=== PATIENT | female | born 1985 | race Two or more races ===

== ENCOUNTER 2022-10-09 18:15 | Inpatient (IN) | payer MEDICAID ==
[~2022-10-09] VITALS: Ht 160 cm; Wt 82.6 kg
[2022-10-09] MEDS ORDERED: SYN.1 PO (19:05)
[2022-10-09 20:39] LABS: BASOPHILS % (AUTO) 0.6 % (0.0-2.0); EOSINOPHILS # (AUTO) 0.2 K/uL (0-0.4); EOSINOPHILS % (AUTO) 2.2 % (0.0-4.0); HEMATOCRIT 37.8 % (36-48); HEMOGLOBIN 13.2 g/dL (12.0-16.0); LYMPHOCYTES % (AUTO) 25.7 % (20.5-51.1); MEAN CORPUSCULAR HEMOGLOBIN 31 pg (27-31); MEAN CORPUSCULAR HGB CONC 35 g/dL (33-37); MEAN CORPUSCULAR VOLUME 89.3 fL (80-94); MONOCYTES # (AUTO) 0.3 K/uL (0.8-1.0); MONOCYTES % (AUTO) 4.4 % (1.7-9.3); NEUTROPHILS # (AUTO) 5.3 K/uL (1.8-7.7); NEUTROPHILS % (AUTO) 67.1 % (42.2-75.2); PLATELET COUNT (AUTO) 232 K/uL (140-450); RED BLOOD CELL COUNT(AUTO) 4.23 MIL/uL (4.20-5.40); RED CELL DISTRIBUTION WIDTH 13.6 % (11.6-13.7); WHITE BLOOD COUNT (AUTO) 7.9 K/uL (4.8-10.8)
[2022-10-09 20:50] LABS: APPEARANCE,URINE CLEAR (CLEAR); BILIRUBIN,URINE NEGATIVE (NEGATIVE); BLOOD, URINE TRACE-I (NEGATIVE); COLOR,URINE YELLOW (YELLOW); LEUKOCYTE ESTERASE ,URINE 1+ (NEGATIVE); NITRITE, URINE NEGATIVE (NEGATIVE); UGLUCOSE NEGATIVE (NEGATIVE)
[2022-10-09 20:51] LABS: PROTHROMBIN TIME 9.2 secs (10.8-13.4)
[2022-10-09 20:59] LABS: ALBUMIN 3.3 g/dL (3.4-5.0); CARBON DIOXIDE 20.5 mmol/L (21-32); CREATININE 0.5 mg/dL (0.6-1.3); POTASSIUM 3.5 mmol/L (3.5-5.1); TOTAL BILIRUBIN 0.4 mg/dL (0.0-1.0)
[2022-10-09 20:59] LABS: BARBITURATE, URINE NEGATIVE ng/ml (NEG <=200); BENZODIAZEPINE, URINE NEGATIVE ng/mL (NEG <=200); CANNABINOID, URINE NEGATIVE ng/mL (NEG <=50); COCAINE, URINE NEGATIVE ng/mL (NEG <=300); OPIATE, URINE NEGATIVE ng/mL (NEG <=2000); PHENCYCLIDINE SCREEN,URINE NEGATIVE ng/mL (NEG <=25)
[2022-10-09] MEDS ORDERED: METHYLERGONOVINE 0.2 MG/ML AMP IM PRN (22:25)
[2022-10-09] MEDS ORDERED: CARBOPROST 250 MCG/ML AMP IM PRN (22:25)
[2022-10-09] MEDS ORDERED: LACTATED RINGERS 500 ML IV ONE (22:25)
[2022-10-10] MEDS: LACTATED RINGERS 1,000 ML IV SCH ×2 (00:16→07:34)
--- NOTE | 2022-10-10 09:46 | NUR ---
PATIENT HAS BEEN SCREENED AND CATEGORIZED LOW NUTRITION RISK. PATIENT WILL BE SEEN WITHIN 7 DAYS OF ADMISSION. 10/16/22 REVIEWED BY RENITA DIALLO RD
[2022-10-10] MEDS ORDERED: ceFAZolin 2,000 MG VIAL ONE ×2 (11:33→12:00)
[2022-10-10] MEDS ORDERED: MORPHINE PRES FREE 10 MG/10 ML AMP IV ONE (11:56)
[2022-10-10] MEDS ORDERED: OXYTOCIN 10 UNITS/ML VIAL ONE (12:00)
[2022-10-10] MEDS ORDERED: ONDANSETRON 4 MG/2 ML VIAL ONE (12:00)
[2022-10-10] MEDS ORDERED: KETOROLAC 30 MG/ML VIAL ONE (12:00)
[2022-10-10] MEDS ORDERED: NEOSTIGMINE 1:1000 10 MG/10 ML VIAL ONE (12:00)
[2022-10-10] MEDS ORDERED: METOCLOPRAMIDE 10 MG/2 ML INJ VIAL IVP PRN (12:55)
[2022-10-10] MEDS ORDERED: ONDANSETRON 4 MG/2 ML VIAL IVP PRN (12:55)
[2022-10-10] MEDS ORDERED: NALOXONE 0.4 MG/ML VIAL IVP PRN ×3 (12:55)
[2022-10-10] MEDS ORDERED: NALBUPHINE 10 MG/ML AMP IVP PRN (12:55)
[2022-10-10] MEDS ORDERED: diphenhydrAMINE 50 MG/ML VIAL IVP PRN (12:55)
[2022-10-10] MEDS ORDERED: diphenhydrAMINE 50 MG/ML VIAL ONE (12:58)
[2022-10-10] MEDS: OXYTOCIN 20 UNITS/LR PREMIX 1,000 ML IV ONE ×2 (13:47→14:10)
[2022-10-10] MEDS ORDERED: METHYLERGONOVINE 0.2 MG/ML AMP IM PRN (14:40)
[2022-10-10] MEDS ORDERED: MEASLES, MUMPS, AND RUBELLA 1 VIAL SQVAC ONE (14:40)
[2022-10-10] MEDS ORDERED: bisacodyL 5 MG TABEC PO PRN (14:40)
[2022-10-10] MEDS ORDERED: oxyCODONE/APAP 5/325 MG 1 TAB TAB PO PRN (14:40)
[2022-10-10] MEDS ORDERED: MEASLES, MUMPS, AND RUBELLA 1 VIAL SQVAC SCH (14:50)
[2022-10-10] MEDS: OXYTOCIN 20 UNITS in LACTATED RINGERS 1,000 ML IV SCH ×2 (15:54→23:33)
[2022-10-10] MEDS: KETOROLAC 30 MG/ML VIAL IM/IVP SCH ×2 (17:59→23:37)
[2022-10-10] MEDS ORDERED: OXYTOCIN 20 UNITS/LR PREMIX 1,000 ML IV ONE (22:30)
[2022-10-11 05:24] LABS: BASOPHILS % (AUTO) 0.3 % (0.0-2.0); EOSINOPHILS # (AUTO) 0.2 K/uL (0-0.4); EOSINOPHILS % (AUTO) 1.7 % (0.0-4.0); HEMATOCRIT 29.8 % (36-48); HEMOGLOBIN 10.4 g/dL (12.0-16.0); LYMPHOCYTES # (AUTO) 1.5 K/uL (2.5-16.5); LYMPHOCYTES % (AUTO) 16.6 % (20.5-51.1); MEAN CORPUSCULAR HEMOGLOBIN 32 pg (27-31); MEAN CORPUSCULAR HGB CONC 35 g/dL (33-37); MEAN CORPUSCULAR VOLUME 90.4 fL (80-94); MONOCYTES # (AUTO) 0.4 K/uL (0.8-1.0); MONOCYTES % (AUTO) 4.6 % (1.7-9.3); NEUTROPHILS % (AUTO) 76.8 % (42.2-75.2); PLATELET COUNT (AUTO) 160 K/uL (140-450); RED CELL DISTRIBUTION WIDTH 13.5 % (11.6-13.7); WHITE BLOOD COUNT (AUTO) 9.2 K/uL (4.8-10.8)
[2022-10-11] MEDS: LEVOTHYROXINE 0.1 MG TAB PO SCH (06:36)
[2022-10-11] MEDS: KETOROLAC 30 MG/ML VIAL IM/IVP SCH (06:38)
[2022-10-11] MEDS ORDERED: OXYTOCIN 20 UNITS/LR PREMIX 1,000 ML IV ONE (07:15)
[2022-10-11] MEDS: OXYTOCIN 20 UNITS in LACTATED RINGERS 1,000 ML IV SCH (07:25)
[2022-10-11] MEDS: IBUPROFEN 800 MG TAB PO PRN ×2 (12:32→18:10)
[2022-10-11] MEDS: oxyCODONE/APAP 5/325 MG 1 TAB TAB PO PRN ×2 (15:16→21:28)
[2022-10-12] MEDS ORDERED: CAMERA MC ONE (03:26)
[2022-10-12] MEDS: oxyCODONE/APAP 5/325 MG 1 TAB TAB PO PRN ×3 (03:33→19:39)
[2022-10-12] MEDS: LEVOTHYROXINE 0.1 MG TAB PO SCH (06:31)
[2022-10-12] MEDS ORDERED: SIMETHICONE 80 MG TAB.CHEW PO PRN (14:30)
[2022-10-13] MEDS ORDERED: CAMERA MC ONE (02:55)
[2022-10-13] MEDS ORDERED: FLU VACCINE QS2022-23 0.5 ML SYR IMVAC ONE (04:00)
[2022-10-13] MEDS: oxyCODONE/APAP 5/325 MG 1 TAB TAB PO PRN ×2 (04:08→10:58)
[2022-10-13] MEDS: LEVOTHYROXINE 0.1 MG TAB PO SCH (06:31)
== END 2022-10-13 14:25 | disposition home or self-care (01) | DRG 540 ==
LOC: MLD 18:15 → OBSVTOIN 22:25 → MFCC 10-10 14:24
PROVIDERS: ADMIT Obstetrics & Gynecology; ATTEND Obstetrics & Gynecology
PROC: 10D00Z1 Extraction of Products of Conception, Low, Open Approach (ICD-10-PCS; principal; 2022-10-10 12:00)
DX: O32.1XX0 Maternal care for breech presentation, not applicable or unspecified (principal); O41.03X0 Oligohydramnios, third trimester, not applicable or unspecified; O99.284 Endocrine, nutritional and metabolic diseases complicating childbirth; E03.9 Hypothyroidism, unspecified; O90.81 Anemia of the puerperium; D64.9 Anemia, unspecified; Z20.822 Contact with and (suspected) exposure to COVID-19; Z37.0 Single live birth; Z3A.40 40 weeks gestation of pregnancy
CPT/HCPCS: 36415; 51702; 76805; 80053; 80305; 81001; 85025; 85610; 85730; 86592; 86762; 86886; 86900; 86901; 87086; 87340; 87653-90; J1200; J1885; J2270; J2405; J2590; J2710; J7120; Q0092